=== PATIENT | male | born 1970 | race African-American/Black ===

== ENCOUNTER 2017-05-24 09:03 | Outpatient (RCR) | payer MEDICAID, SELFPAY | END 2017-05-24 23:59 | LOC: PT 09:03 | PROVIDERS: Visit Provider Internal Medicine | DX: M54.41 Lumbago with sciatica, right side (principal) ==

== ENCOUNTER 2017-05-28 14:00 | Outpatient (RCR) | payer MEDICAID, SELFPAY | END 2017-05-28 23:59 | LOC: PT 14:00 | PROVIDERS: PCP Internal Medicine; Visit Provider Internal Medicine | DX: M54.41 Lumbago with sciatica, right side (principal) | CPT/HCPCS: 97010; 97012; 97014; 97110; 97162; G0283 ==

== ENCOUNTER → 2017-09-20 07:55 | Outpatient (CLI) | payer MEDICAID, SELFPAY ==
--- NOTE | 2017-09-20 07:57 | CT_ITS ---
CT abdomen w con Ordering Physician: Luther Allen MD Patient Age: 46 years: Male HISTORY: ITS.REASON: Abdominal pain PERIUMBILICAL PAIN, UMB HERNIA REPAIR 11/2016 TECHNIQUE: Helical CT scanning performed through abdomen only following 75 cc Isovue-370 along with Redicat oral enteric contrast. Sagittal coronal axial reconstructions performed on CT workstation The entire pelvis was not imaged-Only the uppermost pelvis includedWith today's CT abdomen study & order. COMPARISON : Prior October 12, 2016 CT abdomen pelvis FINDINGS Lung bases clear nothing definitely acute Liver. No focal lesions. No abnormal areas of enhancement.No biliary ductal dilatation. Gallbladder. No definitive calcified stones small dot towards neck could reflect a very tiny pinpoint stone or calcified debris. Pancreas appears satisfactory. Spleen unremarkable. Adrenals unremarkable Kidneys. No urinary tract calculi nor obstruction. No retroperitoneal nor mesenteric adenopathy When compared to the previous 2016 CT study there is been a interval umbilical hernia repair. The bulging fat-containing umbilical hernia now demonstrates of minimal focal density with no significant recurrent hernia here. However there is midline bulging, superior to the umbilicus due to Midline diastases here at upper abdomen. .. Intraperitoneal Bowel loops are seen behind this fairly diffuse midline bulge above umbilicus . On close inspection, on sagittal image 44 there is slight subtle irregularity of the abdominal wall 3.5-4 cm superior to the umbilicus. I believe there may be a subtle defect in the anterior abdominal wall at this level. This yields a double density line on axial images 66-68 with suggestion of a subtle fat with what may be is tiny fat-containing hernia here questioned on these images particularly sagittal slice 45.*Images were reviewed with Dr. Allen This CT study abdomen only includes uppermost pelvis. We do identify a normal-appearing appendix. Upper normal fluid at the distal ileum and terminal ileum. Moderate stool the is seen throughout the visualized colon with scattered diverticula descending colon. Upper normal wall thickness at descending colon most likely reflects lack of distention The small bowel is normal in caliber with. Oral contrast has not yet reached the distal ileum with no seen was less than 1 hour prior to imaging which likely account for such . No osseous lesions evident IMPRESSION: Interval umbilical hernia repair when compared to October 12, 2016. bulging at midline above the umbilicus again seen reflecting previous observed diastases recti. However there is also suggestion of small fat-containing subtle ventral hernia within this area of diastases recti located 3.5-4 cm superior to the umbilicus. Images were reviewed with Dr. Allen Diverticulosis at the sigmoid colon and left colon. No diverticulitis.
== END ==
PROVIDERS: Family Provider Internal Medicine; PCP Internal Medicine; Visit Provider Surgery
DX: R10.33 Periumbilical pain (principal)
CPT/HCPCS: 74160; Q9967

== ENCOUNTER → 2017-11-05 10:17 | Outpatient (CLI) | payer MEDICAID, SELFPAY ==
--- NOTE | 2017-11-05 10:24 | XR_ITS ---
XR hip RT 2-3V w/pelvis HISTORY: ITS.REASON: RT HIP PAIN ORDERING PHYSICIAN: Ok West PATIENT AGE: 46 years COMPARISON: None FINDINGS: No fracture or dislocation is evident. There are minimal osteoarthritic changes with slight decrease in the joint space and minimal osteophyte formation. Involves both hips as seen on the AP view the pelvis. No fracture or dislocation. No lytic or blastic change. IMPRESSION: Mild osteoarthritic changes of the hips
== END ==
PROVIDERS: PCP Internal Medicine; Visit Provider Internal Medicine
DX: M25.551 Pain in right hip (principal)
CPT/HCPCS: 73502

== ENCOUNTER → 2018-08-13 10:25 | Outpatient (CLI) | payer MEDICAID, SELFPAY ==
--- NOTE | 2018-08-13 10:29 | MR_ITS ---
MR shoulder RT wo con COMPARISON: None HISTORY: Right shoulder pain with limited range of motion, prior injury with weakness ORDERING PHYSICIAN: Mejia Carpio PATIENT AGE: 47 years TECHNIQUE: Routine Multiplanar multiecho sequences are performed without contrast FINDINGS: There is severe subacromial stenosis with a running humeral head. Subacromial space is 2 to 3 mm. There is complete tear of the supraspinatus and infraspinatus tendons with retraction and atrophy of the musculotendinous fibers consistent with a chronic tear. Tendinopathy/tendinosis is present involving the subscapularis tendon with forward deviation of the distal aspect of the subscapularis secondary to the high right humeral head. Teres minor tendon is small but appears intact. This muscle and tendon is also distorted due to the high right humeral head. There is mild subcortical edema involving the humeral head is some minimal irregularity of the cortex of the humeral head anteriorly. The long head of the biceps tendon is displaced medially from the bicipital groove There is increase linear T2 signal involving the inferior aspect of the anterior glenoid labrum consistent with a Bankart lesion and tear of the anterior inferior glenoid labrum. Posterior labrum has an unremarkable appearance. There is thinning the superior aspect of the anterior labrum. IMPRESSION: 1. 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 There is severe subacromial stenosis with high writing humeral head. There is tendinopathy/tendinosis of the subscapularis tendon. 2. Medial dislocation of long head of the biceps tendon. 3. 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 Osteoarthritic changes of the glenohumeral joint and degenerative changes of the humeral head
== END ==
PROVIDERS: PCP Internal Medicine; Visit Provider Orthopaedic Surgery Orthopaedic Trauma
DX: M12.819 Other specific arthropathies, not elsewhere classified, unspecified shoulder (principal)
CPT/HCPCS: 73221

== ENCOUNTER → 2018-10-06 13:33 | Outpatient (CLI) | payer MEDICAID, SELFPAY ==
--- NOTE | 2018-10-06 13:35 | MR_ITS ---
MR head/brain wo con HISTORY: Severe headaches with memory loss and dizziness and blurred vision ITS.REASON: HEADACHES ORDERING PHYSICIAN: Ok West PATIENT AGE: 47 years Comparison: None TECHNIQUE: Standard multiplanar multiecho sequences are performed without contrast. FINDINGS: No midline shift, mass effect, intracranial hemorrhage, or hydrocephalus is evident. No evidence of acute infarction. The cerebellopontine angles, cerebellum, and brainstem are unremarkable. There are numerous small subcortical and periventricular T2 white matter hyperintensities in the frontal and parietal lobes on both sides. These do not show restricted diffusion and are mainly subcortical. The pituitary, optic chiasm, corpus callosum, and craniocervical junction has an unremarkable appearance. No mastoid effusion or sinus air-fluid level. IMPRESSION: 1. Scattered small punctate periventricular and subcortical T2 white matter hyperintensities. These are nonspecific and may be seen with migraine headache or ischemic gliotic microvascular changes. Demyelinating process felt to be less likely but not totally excluded. 2. Otherwise negative MRI of the brain without contrast
== END ==
PROVIDERS: PCP Internal Medicine; Visit Provider Internal Medicine
DX: R51 Headache (principal)
CPT/HCPCS: 70551

== ENCOUNTER → 2018-12-16 14:11 | Outpatient (CLI) | payer MEDICAID, SELFPAY ==
--- NOTE | 2018-12-16 14:22 | XR_ITS ---
XR chest 2V HISTORY: ITS.REASON: LT CHEST PAIN,HYPERTENSION ORDERING PHYSICIAN: Ok West PATIENT AGE: 47 years COMPARISON: 02/09/2018. FINDINGS: Cardiac silhouette, hilar areas and pulmonary vessels are normal. There are healed upper lateral left rib fractures and compression plate with fixation screws involving the anterior left fourth and fifth ribs. There is stranding of increased density in the left upper lobe. The remainder of the lung encarnacion are clear without pleural effusion or pneumothorax. There is also some deformity of the medial ends of the left clavicle likely from an old injury. Impression: Chronic appearing left-sided rib injuries. No acute process.
== END ==
PROVIDERS: PCP Internal Medicine; Visit Provider Internal Medicine
DX: R07.9 Chest pain, unspecified (principal); I10 Essential (primary) hypertension
CPT/HCPCS: 71046; 93005

== ENCOUNTER → 2018-12-30 13:43 | Outpatient (CLI) | payer MEDICAID, SELFPAY ==
--- NOTE | 2018-12-30 13:53 | CA_ITS ---
PROCEDURE: 2-D M-mode and color Doppler study INDICATIONS FOR THE TEST: Chest pain + COPD Heart Murmur Tobacco Smoking Palpitations Fatigue Syncope Edema Hypertension+Diabetes Mellitus Rheumatic Fever SOB+GEE Obesity Hyperlipidemia Family History HD Additional History PATIENT INFORMATION HEIGHT: 72 WEIGHT:197 GENDER: Male B/P:192/92 2-D/M-MODE INTERPRETATION: 2-D MEASUREMENTS OBSERVED VALUES IN CMS Right Ventricular Dimension (RVDd) 2.4 Interventricular Septum (Thickness)(IVsd) 1.0 Left Ventricular Internal Dimensions(LVIDd) 4.9 Left Ventricular Posterior Wall (Thickness)(LVPWd) 0.6 Aortic Root 2.3 Aortic Cusp Separation 1.9 Left Atrial Dimensions (LAD) 4.1 2D 1. Left atrium is mildly enlarged, left ventricle is normal size, there is no concentric left ventricular hypertrophy, visually estimated ejection fraction 50% with no obvious regional wall motion abnormality. 2. The right atrium and right ventricle are mildly enlarged with normal contractility. 3. The aortic valve is minimally thickened and fibrosed. 4. The mitral and tricuspid valve leaflets are minimally thickened. 5. The pulmonic valve is poorly visualized. 6. No significant pericardial effusion noted. DOPPLER INTERROGATION: Doppler interrogation of the aortic, mitral and tricuspid valvular presence of mild mitral and tricuspid regurgitation, tricuspid regurgitation jet velocity is inadequate for calculation of the right ventricular systolic pressure, diastolic parameters are inconclusive. Inferior vena cava is not well visualized. CONCLUSION: 1. Mild biatrial enlargement, normal left ventricular size, visually estimated ejection fraction 50% with no regional wall motion abnormality. Diastolic parameters are inconclusive. 2. Mildly enlarged right ventricle with normal contractility. 3. Mild mitral and tricuspid regurgitation 4. No significant pericardial effusion noted.
== END ==
PROVIDERS: PCP Internal Medicine; Visit Provider Internal Medicine
DX: R07.9 Chest pain, unspecified (principal); R06.02 Shortness of breath
CPT/HCPCS: 93306

== ENCOUNTER 2019-01-16 15:00 | Outpatient (RCR) | payer MEDICAID, SELFPAY | END 2019-01-16 15:05 | disposition home or self-care (01) | LOC: PT 15:00 | PROVIDERS: Visit Provider Orthopaedic Surgery Orthopaedic Trauma | DX: M12.811 Other specific arthropathies, not elsewhere classified, right shoulder (principal) | CPT/HCPCS: 97010; 97014; 97016; 97110; 97140; 97163; 97164; G0283 ==

== ENCOUNTER → 2019-02-19 11:04 | Outpatient (POV) | payer MEDICAID, SELFPAY ==
[2019-02-19 11:15] VITALS: BP 180/72; PULSE 75; BMI 26.6
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
== END ==
PROVIDERS: PCP Internal Medicine; Visit Provider Clinical Nurse Specialist Family Health
DX: M54.5 Low back pain (principal); M25.551 Pain in right hip; M79.604 Pain in right leg; M25.571 Pain in right ankle and joints of right foot
CPT/HCPCS: 99202

== ENCOUNTER → 2019-03-02 14:19 | Outpatient (CLI) | payer OTHER, SELFPAY ==
--- NOTE | 2019-03-02 14:43 | ECG_ITS ---
APPROVED REPORT Exam: Resting ECG HR:60 bpm ECG Measurements Heart Rate 60 AXES UT 148 P 47 QRSd 76 QRS -12 QT 384 T -26 QTc 384 <Conclusion> Normal sinus rhythm Nonspecific ST-T wave abnormalities Abnormal ECG Electronically signed by : Ok West, 03/02/2019 15:31:27
[2019-03-02 14:53] LABS: Troponin I < 0.02 ng/ml (0.00-0.06)
== END ==
PROVIDERS: PCP Internal Medicine; Visit Provider Internal Medicine
DX: R07.89 Other chest pain (principal)
CPT/HCPCS: 36415; 84484; 93005

== ENCOUNTER → 2019-04-09 11:54 | Outpatient (CLI) | payer OTHER, SELFPAY ==
--- NOTE | 2019-04-09 | CA_ITS ---
APPROVED REPORT Exam: Pharmacologic Technologist: mia diaz, Ht: 6 ft 0 in Wt: 196 lbs BSA: 2.11 m2 HR: 79 bpm BP: 144/98 mmHg Indications: CP Medical History Medications: Amlodipine,,,,, Lisinopril,,,,, Asa,,,,, Gabapentin,,,,, HCTZ,,,,, BisOPROLOL,,,,, Allergies: No known drug allergies Cardiac Risk Factors: HTN Stress Test Details Test: LEXISCAN HR Resting HR: 78 bpm Max Heart Rate (APMHR): 173 bpm Max HR Achieved: 120 bpm Target HR (85% APMHR): 147 bpm % of APMHR: 69 Recovery HR: 101 bpm BP Resting BP: 144/98 mmHg Max BP: 144/98 mmHg Recovery BP: 137.0/89.0 mmHg ECG Resting ECG: NSR, NSSTTW Abnormalities Clinical Reason for Termination: Completed Protocol Exercise duration: 04:02 min Highest Stage Achieved: Stress ECG Conclusion Patient had no symptoms, with isolated PVC- PAC. There was < 1.5mm ST Segment Changes. Non-Diagnostic. Test Summary REST 06:09 . . 78 . 144/ 98 . . Stage 1 01:00 . . 109 . . . . Stage 2 01:00 . . 115 . 115/ 74 . . Stage 3 01:00 . . 103 . 137/ 94 . . Stage 4 01:00 . . 105 . 136/ 86 . . Stage 4 01:02 . . 105 . 136/ 86 . Stop exercise at 04:02 RECOVERY 01:00 . . 102 . 137/ 89 . . RECOVERY 02:00 . . 90 . 137/ 89 . . RECOVERY 03:00 . . 93 . 136/ 90 . . RECOVERY 03:40 . . 95 . 140/ 91 . . Electronically signed by : Vito Ojeda, 04/09/2019 15:17:00
--- NOTE | 2019-04-09 11:58 | NM_ITS ---
APPROVED REPORT Exam: Nuclear Stress Test Indication: HTN, TOB USE, C.P., SOB, FATIQUE Patient Location: Outpatient Stress Tech: Mendy MccoyElizabeth AR Tech:BRIDGET Cabral RT(R)(N) Ht: 6 ft 0 in Wt: 196 lbs HR: 79 bpm BP: 144/98 mmHg BSA: 2.11 m2 History: HTN, TOB USE, C.P., SOB, FATIQUE Procedure: Patient received a 0.4 mg of intravenous Lexiscan, resting heart rate 79 bpm, resting blood pressure 144/98 mmHg, with Lexiscan maximum heart rate achived was 115 bpm which is Less than 85 % of the maximum predicted heart rate and blood pressure was 115/74 mmHg. With Lexiscan, patient denied any complaint of chest pain. Electrocardiogram Resting electrocardiogram shows sinus rhythm nonspecific ST-T changes, with Lexiscan there is less than 1.[address] segment depression from the baseline EKG. The EKG portion of the Lexiscan Myoview is nondiagnostic. Cardiac Stress and Resting SPECT Images: Cardiac Stress and Resting SPECT images were obtained using technetium 99m Myoview 32.0 mCi stress and 10.42 mCi at rest. Gated SPECT with analysis of segmental wall motion and calculation of the ejection fraction also done. Cardiac stress and resting SPECT images show decreased tracer activity in the anterolateral wall which improves on the resting images suggestive of reversible ischemia, computer derived ejection fraction is 53% with no regional wall motion abnormality, right ventricle is normal size and contractility. Conclusion: 1. The EKG portion of the Lexiscan Myoview is nondiagnostic. 2. Scintigraphic evidence of mild reversible ischemia involving the anterolateral wall, computer derived ejection fraction is 53% with no regional wall motion abnormality, right ventricle is normal size and contractility. 3. Abnormal Lexiscan Myoview study. Electronically signed by : Vito Ojeda, 04/09/2019 15:20:01
--- NOTE | 2019-04-09 14:17 | HMH.ITSHM ---
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 []
== END ==
PROVIDERS: PCP Internal Medicine; Visit Provider Nurse Practitioner Family
DX: R07.9 Chest pain, unspecified (principal); R06.00 Dyspnea, unspecified; R00.1 Bradycardia, unspecified; R94.31 Abnormal electrocardiogram [ECG] [EKG]; I10 Essential (primary) hypertension
CPT/HCPCS: 78452; 93017; A9502; J2785

== ENCOUNTER 2019-09-10 13:00 | Outpatient (RCR) | payer OTHER, SELFPAY | END 2019-09-10 13:05 | disposition home or self-care (01) | LOC: PT 13:00 | DX: M75.01 Adhesive capsulitis of right shoulder (principal) | CPT/HCPCS: 20560; 97014; 97016; 97110; 97140; 97163; 97164; G0283 ==

== ENCOUNTER → 2019-11-23 10:48 | Outpatient (POV) | payer OTHER, SELFPAY ==
[2019-11-23 11:05] VITALS: BP 134/95; PULSE 69; RESP 18; O2SAT 98; BMI 26.6
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
== END ==
PROVIDERS: PCP Internal Medicine; Visit Provider Clinical Nurse Specialist Family Health
DX: M25.511 Pain in right shoulder (principal)
CPT/HCPCS: 99212

== ENCOUNTER → 2019-12-23 15:17 | Outpatient (CLI) | payer OTHER, SELFPAY ==
--- NOTE | 2019-12-23 15:33 | XR_ITS ---
PROCEDURE: XR CERVICAL SPINE 4V CLINICAL INDICATION: NECK PAIN, HYPERTENSION COMPARISON: No exams were available for comparison FINDINGS: The cervical vertebra are visualized from C1-C7. There is normal cervical lordosis. No acute fracture is identified. The vertebral body and disc heights are maintained. The vertebral bodies maintain normal alignment. The odontoid process is intact. Demonstrated neural foraminal narrowing at C3-C4 and possibly at C4-C5 level on the oblique views. Other findings:There is no prevertebral soft tissue swelling. IMPRESSION: 1. No acute findings. 2. Possibly there is mild neural foraminal narrowing at C3-C4 and C4-C5 levels. If there is continued clinical concern, CT or MRI exam of the spine is recommended. Dictated by: Jose Miles 12/23/2019 15:59 Electronically signed by Jose Miles in [place] 12/23/2019 15:59
[2019-12-23 15:43] LABS: Basophils % 0.3 % (0.1-2.0); Eosinophils # 0.1 K/mm3 (0.0-0.4); Eosinophils % 1.8 % (0.1-12.0); Hematocrit 47.8 % (42.0-52.0); Hemoglobin 16.4 g/dL (14.1-18.0); Lymphocytes # 2.1 K/mm3 (0.7-4.5); Mean Corpuscular HGB Conc 34.3 g/dL (31.8-35.4); Mean Corpuscular Volume 87.4 fl (80-94); Mean Platelet Volume 6.8 fl (7.4-10.4); Monocytes # 0.5 K/mm3 (0.1-1.0); Monocytes % 7.6 % (1.7-9.3); Neutrophils # 3.8 K/mm3 (1.8-7.8); Neutrophils % 58.3 % (37.0-80.0); Platelet Count 275 K/mm3 (142-424); Red Blood Count 5.46 M/mm3 (4.60-6.20); Red Cell Distribution Width 13.6 % (11.5-17.5); White Blood Count 6.5 K/mm3 (4.8-10.8)
[2019-12-25 18:01] LABS: Rapid Plasma Reagin Ab Titer Non Reactive (NonRea<1:1)
== END ==
PROVIDERS: Visit Provider Internal Medicine
DX: M54.2 Cervicalgia (principal); R20.0 Anesthesia of skin; R20.2 Paresthesia of skin; I10 Essential (primary) hypertension; R30.0 Dysuria
CPT/HCPCS: 36415; 72050; 85025; 86592

== ENCOUNTER → 2020-09-28 11:23 | Outpatient (CLI) | payer OTHER, SELFPAY ==
--- NOTE | 2020-09-28 11:27 | XR_ITS ---
PROCEDURE: XR HIP RT 2-3V W/PELVIS CLINICAL INDICATION: RT HIP PAIN Prior surgery COMPARISON: CR PEL1V XR pelvis 1-2V from 02/09/2018 FINDINGS: Extensive postsurgical changes. Transverse screw is present in the right aspect of the iliosacral junction extending medially to the mid sacral region. Oblique screws are present extending from the super acetabular region to the pubic symphysis on both sides. Transverse screws present directed from the right-sided symphysis pubis into the left symphysis pubis. Callus formation is present at the symphysis pubis and along the pubic rami on both sides. Heterotopic ossification noted along the superior aspect of the greater trochanter on the right with an intramedullary oliva in the right femur with a prominent callus formation at the proximal to mid shaft of the right femur. There are mild osteoarthritic changes of the right hip. Heterotopic ossification also noted at the mid shaft femur region medially. No evidence of fracture of the screws or rods. The right femur I am oliva extends to the distal femur region. IMPRESSION: Extensive postsurgical changes as described above. Mild osteoarthritis of the right hip Dictated by: Bob Michelle MD 09/28/2020 12:41 Bob Michelle MD in [place] 09/28/2020 12:41
== END ==
PROVIDERS: PCP Internal Medicine; Visit Provider Internal Medicine
DX: M25.551 Pain in right hip (principal)
CPT/HCPCS: 73502

== ENCOUNTER → 2021-02-10 16:36 | Outpatient (CLI) | payer OTHER, SELFPAY ==
[2021-02-10 17:45] LABS: Microscopic, Urine URINE MICROSCOPIC (MICROSCOPIC)
[2021-02-10 17:50] LABS: Appearance,Urine CLEAR (Clear); Bilirubin,Urine Negative (Negative); Blood, Urine Negative (Negative); Color,Urine YELLOW (Yellow); Glucose,Urine (UA) Negative (Negative); Ketones,Urine Negative (Negative); Leukocyte Esterase,Urine Negative (Negative); Nitrate,Urine Negative (Negative); Protein,Urine Negative (Negative); Specific Gravity, Urine 1.025 (1.005-1.030); Urobilinogen,Urine 0.2 EU/dl (0.2)
[2021-02-10 20:22] LABS: Bacteria,Urine Trace /lpf; RBC,Urine Occasional #/hpf (0-3); WBC,Urine Occasional #/hpf (0-3)
[2021-02-13 20:13] LABS: Neisseria gonorrhoeae, NAA Negative (Negative)
== END ==
PROVIDERS: Visit Provider Internal Medicine
DX: R30.0 Dysuria (principal)
CPT/HCPCS: 81001; 87491; 87591

== ENCOUNTER → 2021-04-26 14:16 | Outpatient (CLI) | payer OTHER, SELFPAY ==
[2021-04-28 08:38] LABS: HSV 2 IgG, Type Spec <0.91 index (0.00-0.90)
[2021-04-28 10:12] LABS: Rapid Plasma Reagin Ab Titer Non Reactive (NonRea<1:1)
[2021-04-28 11:28] LABS: HIV Screen 4th Generation wRfx Non Reactive (Non Reactive)
[2021-05-01 12:40] LABS: HSV, IgM I/II Combination <0.91 Ratio (0.00-0.90)
== END ==
PROVIDERS: Visit Provider Internal Medicine
DX: Z20.2 Contact with and (suspected) exposure to infections with a predominantly sexual mode of transmission (principal); Z11.4 Encounter for screening for human immunodeficiency virus [HIV]
CPT/HCPCS: 36415; 86592; 86695; 86696; 86703; 86790; G0432

== ENCOUNTER → 2022-02-14 16:31 | Outpatient (CLI) | payer OTHER, SELFPAY ==
[2022-02-16 23:00] LABS: Neisseria gonorrhoeae, NAA Negative (Negative)
== END ==
PROVIDERS: PCP Internal Medicine; Visit Provider Internal Medicine
DX: R30.0 Dysuria (principal)
CPT/HCPCS: 87491; 87591

== ENCOUNTER → 2022-11-15 09:05 | Outpatient (CLI) | payer OTHER, SELFPAY ==
[2022-11-15 09:14] LABS: Microscopic, Urine URINE MICROSCOPIC (MICROSCOPIC)
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
--- NOTE | 2022-11-15 09:40 | ECG_ITS ---
APPROVED REPORT Exam: Resting ECG HR:56 bpm ECG Measurements Heart Rate 56 AXES VT 162 P 64 QRSd 92 QRS 61 QT 376 T 38 QTc 368 Conclusion SINUS BRADYCARDIA NONSPECIFIC ST-T WAVE ABNORMALITIES BORDERLINE ECG Electronically signed by : Ok West MD 11/19/2022 15:29:16
[2022-11-15 09:45] LABS: Appearance,Urine CLEAR (Clear); Bilirubin,Urine Negative (Negative); Blood, Urine Negative (Negative); Color,Urine YELLOW (Yellow); Glucose,Urine (UA) Negative (Negative); Ketones,Urine TRACE (Negative); Leukocyte Esterase,Urine Negative (Negative); Nitrate,Urine Negative (Negative); Protein,Urine TRACE (Negative)
[2022-11-15 09:47] LABS: Basophils % 0.5 % (0.1-2.0); Eosinophils # 0.1 K/mm3 (0.0-0.4); Eosinophils % 1.5 % (0.1-12.0); Hematocrit 47.9 % (42.0-52.0); Hemoglobin 15.5 g/dL (14.1-18.0); Lymphocytes # 1.8 K/mm3 (0.7-4.5); Lymphocytes % 40.3 % (10-50); Mean Corpuscular HGB Conc 32.4 g/dL (31.8-35.4); Mean Corpuscular Volume 86.4 fl (80-94); Mean Platelet Volume 7.1 fl (7.4-10.4); Monocytes # 0.5 K/mm3 (0.1-1.0); Monocytes % 11.5 % (1.7-9.3); Neutrophils # 2.1 K/mm3 (1.8-7.8); Neutrophils % 46.1 % (37.0-80.0); Platelet Count 279 K/mm3 (142-424); Red Blood Count 5.54 M/mm3 (4.60-6.20); Red Cell Distribution Width 13.7 % (11.5-17.5); White Blood Count 4.5 K/mm3 (4.8-10.8)
[2022-11-15 09:56] LABS: Squamous Epithelial Cell,Urine Occasional #/hpf (0-5)
[2022-11-15 10:27] LABS: Alanine Aminotransferase 18 U/L (12-78); Albumin Level 4.2 g/dl (3.5-5.0); Albumin/Globulin Ratio 1.6 (1.1-1.8); Alkaline Phosphatase 79 U/L (38-126); Anion Gap 11.3 mEq/L (5-15); Aspartate Amino Transferase 37 U/L (17-59); Bilirubin,Total 0.6 mg/dl (0.2-1.3); Blood Urea Nitrogen 9 mg/dl (9-20); Calcium 9.2 mg/dl (8.4-10.2); Carbon Dioxide 32 mmol/L (22.0-30.0); Chloride 100 mmol/L (98-107); Chol/HDL Ratio 3.9 (1-3.5); Cholesterol 240 mg/dl (140-200); Estimated Glomerular Filt Rate 79 ml/min (>60); GFR (African American) 96 ML/MIN (>60); Globulin 2.6 g/dL (1.3-3.2); Glucose 100 mg/dl (74-100); HDL Cholesterol 62 mg/dl (40-60); Potassium 4.3 mmoL/L (3.5-5.1); Sodium 139 mmol/L (136-145); Total Protein,Serum 6.8 g/dl (6.3-8.2); Triglycerides 122 mg/dl (30-150); VLDL Cholesterol 24 mg/dL (0-40)
[2022-11-15 10:38] LABS: Direct LDL Cholesterol 107.15 mg/dL (100-129)
[2022-11-15 10:57] LABS: Prostate Specific Ag Screen 2.5 ng/ml (0.0-4.0)
== END ==
PROVIDERS: PCP Internal Medicine; Visit Provider Internal Medicine
DX: R07.9 Chest pain, unspecified (principal); I10 Essential (primary) hypertension; E78.5 Hyperlipidemia, unspecified; M54.41 Lumbago with sciatica, right side; Z12.5 Encounter for screening for malignant neoplasm of prostate
CPT/HCPCS: 36415; 71046; 80053; 80061; 81001; 85025; 93005; G0103

== ENCOUNTER → 2022-12-24 16:36 | Outpatient (CLI) | payer OTHER, SELFPAY ==
[2022-12-26 22:18] LABS: Neisseria gonorrhoeae, NAA Negative (Negative)
== END ==
PROVIDERS: PCP Internal Medicine; Visit Provider Internal Medicine
DX: R30.0 Dysuria (principal)
CPT/HCPCS: 87491; 87591

== ENCOUNTER → 2023-05-14 17:28 | Outpatient (CLI) | payer OTHER, SELFPAY ==
[2023-05-16 23:19] LABS: Neisseria gonorrhoeae, NAA Negative (Negative)
== END ==
PROVIDERS: PCP Internal Medicine; Visit Provider Internal Medicine
DX: R30.0 Dysuria (principal)
CPT/HCPCS: 87491; 87591

== ENCOUNTER 2023-05-29 10:04 | Outpatient (CLI) | payer OTHER, SELFPAY ==
[2023-05-29 10:29] LABS: Basophils % 0.9 % (0.1-2.0); Eosinophils # 0.1 K/mm3 (0.0-0.4); Eosinophils % 1.3 % (0.1-12.0); Hematocrit 52.4 % (42.0-52.0); Hemoglobin 16.6 g/dL (14.1-18.0); Lymphocytes # 1.6 K/mm3 (0.7-4.5); Lymphocytes % 41.1 % (10-50); Mean Corpuscular HGB Conc 31.8 g/dL (31.8-35.4); Mean Corpuscular Volume 91.3 fl (80-94); Mean Platelet Volume 7.1 fl (7.4-10.4); Monocytes # 0.4 K/mm3 (0.1-1.0); Monocytes % 9.2 % (1.7-9.3); Neutrophils # 1.9 K/mm3 (1.8-7.8); Neutrophils % 47.4 % (37.0-80.0); Platelet Count 323 K/mm3 (142-424); Red Blood Count 5.74 M/mm3 (4.60-6.20); Red Cell Distribution Width 13.4 % (11.5-17.5)
[2023-05-29 16:24] LABS: Alanine Aminotransferase 21 U/L (12-78); Albumin Level 4.3 g/dl (3.5-5.0); Alkaline Phosphatase 75 U/L (38-126); Anion Gap 9.4 mEq/L (5-15); Aspartate Amino Transferase 39 U/L (17-59); Bilirubin,Direct 0.1 mg/dl (0.0-0.4); Bilirubin,Indirect 0.3 mg/dL (0.0-0.9); Bilirubin,Total 0.4 mg/dl (0.2-1.3); Bilirubin,Unconjugated 0.4 mg/dL (0.0-1.1); Blood Urea Nitrogen 14 mg/dl (9-20); Calcium 9.2 mg/dl (8.4-10.2); Carbon Dioxide 30 mmol/L (22.0-30.0); Chloride 102 mmol/L (98-107); Cholesterol 248 mg/dl (140-200); Estimated Glomerular Filt Rate 71 ml/min (>60); GFR (African American) 85 ML/MIN (>60); Glucose 109 mg/dl (74-100); HDL Cholesterol 50 mg/dl (40-60); Potassium 4.4 mmoL/L (3.5-5.1); Sodium 137 mmol/L (136-145); Triglycerides 119 mg/dl (30-150); VLDL Cholesterol 24 mg/dL (0-40)
[2023-05-29 16:35] LABS: Direct LDL Cholesterol 131.42 mg/dL (100-129)
[2023-05-29 16:40] LABS: Free T4 (Free Thyroxine) 0.73 ng/dl (0.78-2.19)
[2023-05-29 16:54] LABS: Thyroid Stimulating Hormone 1.09 uIU/mL (0.465-4.68)
== END 2023-05-29 23:59 ==
PROVIDERS: PCP Internal Medicine; Visit Provider Nurse Practitioner Family
DX: R07.9 Chest pain, unspecified (principal); R94.31 Abnormal electrocardiogram [ECG] [EKG]
CPT/HCPCS: 36415; 80048; 80061; 80076; 83735; 84439; 84443; 85025

== ENCOUNTER 2023-06-18 08:02 | Outpatient (CLI) | payer OTHER, SELFPAY ==
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
[2023-06-18 08:41] VITALS: BMI 57.6
[2023-06-18 08:46] VITALS: BP 153/94; PULSE 55; RESP 16; TEMP 36.6; O2SAT 99
--- NOTE | 2023-06-18 08:50 | CT_ITS ---
APPROVED REPORT Circuit Design Engineer: CLINICAL INDICATION Chest Pain TECHNIQUE Image Acquisition: A 128 slice MDCT scanner (Onyx Groupa View) was used for data acquisition. A noncontrast coronary calcium scan was performed. A CT attenuation threshold of 130 Hounsfield units (HU) was used for the detection of calcium in contiguous voxels of 1 sq mm in area to be counted as individual lesions. Bolus tracking in the ascending aorta with a threshold of 180 HU was performed. Immediately afterwards, ECG synchronized cardiac CT was then performed from the cardiac base to apex using retrospective gating with ECG tube current modulation. A total of 85 mL of Isovue 370 mg/mL contrast medium was administered at 5 mL/sec followed by a saline flush using a biphasic injection protocol. A tube voltage of 120 KVp was used. The patient received the following medications prior to the cardiac CT. 0.8 mg of sublingual nitroglycerin The average heart rate at the time of acquisition was 54 bpm and regular. Image Reconstruction Transaxial images were reconstructed at 0.67 mm slide thickness. Data was reviewed interactively on an advanced workstation capable of 2 and 3-dimensional displays in all conventional reconstruction formats, including multiplanar reformations, maximum intensity projections, curved multiplanar reformations, and volume rendered reconstructions. When applicable, selected routine images describing the relevant coronary anatomy and pathology were saved and sent to PACS. Complications None Technical Quality Overall image quality was good. Coronary artery opacification was adequate. Total DLP (Dose-Length Product) is 1126.8 mGy-cm. The reported value represents the total of one or more individual components during the CT acquisition of this date and at this time, and as such, the same value may appear in more than one CT report depending on the interpreting/reporting physicians. COMPARISON None FINDINGS CT Coronary Calcium Scoring LMA (Left Main Artery) = 0 LAD (Left Anterior Descending) = 0 LCX (Left Coronary Circumflex) = 0 RCA (Right Coronary Artery) = 110 Total Calcium Score = 110 using the AJ-130 method. The observed calcium score of 110 is at 88th percentile for subjects of the same age, sex, and race/ethnicity. The interpretation of the calcium heart score is based on the following continuum*: 0 = no calcified plaque detected (risk of coronary artery disease is very low ??? less than 5%) 1-10 = calcium detected in extremely minimal levels (risk of coronary diseases is still low ??? less than 10%) 11-100 = mild levels of plaque detected with certainty (mild or minimal narrowing of heart arteries is likely) 101-400 = definite,at least moderate levels of plaque detected (relatively high risk of a heart attack within 3-5 years) >401-999 = extensive levels of plaque detected (high risk of heart attack, high levels of vascular disease are present, high likelihood of at least one significant coronary narrowing) *The calcium heart score quantifies the burden of coronary calcification/plaque in the coronary arteries. The calcium heart score is not able to evaluate the presence or burden of non-calcified (i.e. soft) plaque. There is no identifiable calcification in the aortic valve, mitral annulus or mitral valve, pericardium, or myocardium. Coronary CT Angiography The coronary arterial system is right dominant. Quantitative Stenosis Grading: Left Main (LM): The left main originates normally from the left sinus of Valsalva. The LM trifurcates into the left anterior descending artery and left circumflex artery. The LM is patent with no evidence of atherosclerosis. Left Anterior Descending (LAD) and Diagonal Branches: The LAD gives off 2 diagonal branches. The LAD and its branches are patent with no evidence of atherosclerosis. There is no evidence of LAD bridge. Ramus-intermedius (RI): The RI is patent. Left Circumflex (LCX) and Obtuse Marginals (OM): The LCX gives off 2 Obtuse Marginal (OM) branches. The LCX and its branches are patent with no evidence of atherosclerosis. Right Coronary Artery (RCA): The RCA originates normally from the right sinus of Valsalva. The RCA gives off a posterior descending artery (PDA) and posterolateral (PL) branches. There is a calcified plaque in the proximal RCA but not resulting in luminal stenosis. There is also another mixed-plaque in the mid-RCA with mild 30-50% luminal stenosis. Non-Coronary Cardiac Findings: Analysis of the left ventricular (LV) structure and function was performed after 3-D reconstruction of the LV from axial images, with user-corrected automatic contouring for assessment of LV volumes and user-defined reconstruction from oblique planes for measurement of 3-D cardiac structure and function. LVEDV: 197 mL LVESV: 79 mL SV: 118 mL LVEF: 60% -The left ventricle is normal in size with normal left ventricular systolic function. -There is no left atrial appendage filling defect. Two right pulmonary veins and two left pulmonary veins drain normally into the left atrium. -No pericardial thickening or calcification. -Central and branch pulmonary arteries in the [id number] are unremarkable. -Thoracic aorta within the visualized thoracic aortic-branches in the [id number] is unremarkable. Extracardiac Structures -Hiatal hernia is present. IMPRESSION -Presence coronary calcification with an Agatston score = 110 using the AJ-130 method. -The observed calcium score of 110 is at 88th percentile for subjects of the same age, sex, and race/ethnicity. -Mixed calcified/non-calcified plaque in the mid-RCA, with approximately 30-50% non-obstructive luminal stenosis. -CAD-RADS 2. Management recommendations per ACC/AHA guidelines*, as clinically appropriate. -Hiatal hernia is incidentally noted. *Recommendations: CAD RADS 0: Reassurance. Consider non-atherosclerotic causes of chest pain. CAD RADS 1: Consider non-atherosclerotic causes of chest pain. Consider preventive therapy and risk factor modification. CAD RADS 2: Consider non-atherosclerotic causes of chest pain. Consider preventive therapy and risk factor modification, particularly for patients with nonobstructive plaque in multiple segments. CAD RADS 3: Consider further functional testing. Consider symptom-guided anti-ischemic and preventive pharmacotherapy as well as risk factor modification per published guideline statements. CAD RADS 4A: Consider further functional testing or invasive coronary angiography with revascularization per published guideline statements. Consider symptom-guided anti-ischemic and preventive pharmacotherapy as well as risk factor modification per published guideline statements. CAD RADS 4B: Invasive coronary angiography recommended with revascularization per published guideline statements. Consider symptom-guided anti-ischemic and preventive pharmacotherapy as well as risk factor modification per published guideline statements. CAD RADS 5: Consider invasive angiography and/or viability assessment with revascularization per published guideline statements. Consider symptom-guided anti-ischemic and preventive pharmacotherapy as well as risk factor modification per published guideline statements. CRITICAL RESULT None COMMUNICATION Per this written report The coronary and cardiac findings of this CCTA were reviewed, reported, and signed by Anil Perez MD (Human Anatomy Teacher) Conclusion Electronically signed by : Estephanie Perez MD 06/20/2023 17:09:49
[2023-06-18 08:57] VITALS: BP 167/101; PULSE 54; RESP 16; O2SAT 99
[2023-06-18 09:02] VITALS: BP 137/88; PULSE 62; RESP 16; O2SAT 98
[2023-06-18 09:12] VITALS: BP 153/73; PULSE 57; RESP 16; TEMP 36.9; O2SAT 98
[2023-06-18] MEDS: IOPAMIDOL-370 (76%);100ML BOTTLE 85 ML IV (09:18)
[2023-06-18] MEDS: 0.9 % SODIUM CHLORIDE 50 ML VIAL IV (09:18)
== END 2023-06-18 09:20 | disposition home or self-care (01) ==
PROVIDERS: PCP Internal Medicine; Visit Provider Internal Medicine
DX: R07.9 Chest pain, unspecified (principal); R94.31 Abnormal electrocardiogram [ECG] [EKG]
CPT/HCPCS: 75571; 75574; 93306; Q9967

== ENCOUNTER 2023-07-03 11:02 | Outpatient (CLI) | payer OTHER, SELFPAY ==
--- NOTE | 2023-07-03 | CA_ITS ---
APPROVED REPORT Exam: Pharmacologic Technologist: Mallory Hernandez Ht: 0 ft 6 in Wt: 191 lbs BSA: 0.34 m2 HR: 45 bpm BP: 130/76 mmHg Rhythm: NSR Indications: CP Medical History Medications: Amlodipine,,,,, Lisinopril,,,,, Omeprazole,,,,, Aspirin,,,,, Gabapentin,,,,, Atorvastatin,,,,, BisOPROLOL,,,,, Diclofenac Sodium,,,,, Stress Test Details Test: LEXISCAN HR Resting HR: 47 bpm Max Heart Rate (APMHR): 169 bpm Max HR Achieved: 87 bpm Target HR (85% APMHR): 144 bpm % of APMHR: 51 Recovery HR: 59 bpm BP Resting BP: 130/76 mmHg Max BP: 132/65 mmHg Recovery BP: 132.0/65.0 mmHg ECG Resting ECG: Sinus bradycardia, nonspecific T wave changes Stress ECG: No significant ST changes Arrhythmia: None Clinical Exercise duration: 04:01 min Highest Stage Achieved: Exercise capacity: 1.0 METs Stress ECG Conclusion Symptoms: mild shortness of air. No chest pain Arrhythmias/Ectopy: None ST-T Changes: No significant ST changes. Conclusion: Unremarkable Lexiscan stress. Myoview images reported separately. Test Summary REST 02:49 . . 47 . 130/ 76 . . Stage 1 01:00 . . 64 . . . . Stage 2 01:00 . . 84 . 127/ 76 . . Stage 3 01:00 . . 73 . 116/ 80 . . Stage 4 01:00 . . 66 . 118/ 76 . . Stage 4 01:01 . . 66 . 118/ 76 . Stop exercise at 04:01 RECOVERY 01:00 . . 63 . 130/ 71 . . RECOVERY 02:00 . . 60 . 130/ 71 . . RECOVERY 03:00 . . 59 . 132/ 65 . . RECOVERY 03:17 . . 57 . 132/ 65 . . Electronically signed by : Estephanie Perez MD 07/06/2023 23:44:16
--- NOTE | 2023-07-03 11:02 | NM_ITS ---
APPROVED REPORT Exam: Nuclear Stress Test Indication: Chest pain, HTN, High cholesterol, Tobacco use, Family history Patient Location: Outpatient Stress Tech: Letty Pascual MS Tech:Kait Georges, ARRT, RT (R)(N) Ht: 6 ft 0 in Wt: 191 lbs HR: 47 bpm BP: 130/76 mmHg BSA: 2.09 m2 TID: 1.13 History: Chest pain, HTN, High cholesterol, Tobacco use, Family history Procedure: Patient received 0.4 mg of intravenous Lexiscan, resting heart rate 47 bpm, resting blood pressure 130/76 mmHg, with AdenosineLexiscan maximum heart rate achieved was 87 bpm which is % of the maximum predicted heart rate and blood pressure was 132/65 mmHg. With Lexiscan, patient denied any complaint of chest pain. Cardiac Stress and Resting SPECT Images: Cardiac Stress and Resting SPECT images were obtained using technetium 99m Myoview 32.2 mCi stress and 10.60 mCi at rest. Resting and stress imaging in supine and prone positions demonstrate a large sized, moderate, partially reversible perfusion defect in the inferior and inferoapical LV reeves. Gated imaging demonstrates mild reduction in global LV systolic function. There is moderate hypokinesis in the inferior LV wall. LVEF is calculated at 44%. Conclusion: Large sized, moderate, partially reversible perfusion defect in the inferior and inferoapical LV reeves. Findings are suggestive of partial reversible ischemia. Gated imaging demonstrates mild reduction in global LV systolic function. There is moderate hypokinesis in the inferior LV wall. LVEF is calculated at 44%. Electronically signed by : Estephanie Perez MD 07/06/2023 23:46:16
[2023-07-03] MEDS: ISOTOPE MYOVIEW (PER STUDY) 1 DOSE IV (12:44)
[2023-07-03] MEDS: SODIUM CHLORIDE 0.9% 10ML SYR (RAD ONLY) 10 ML IV ×2 (12:44)
[2023-07-03] MEDS: REGADENOSON 0.4MG/5ML SYRINGE 0.400000000000000022 MG IV (12:44)
== END 2023-07-03 23:59 ==
LOC: RAD 11:02
PROVIDERS: PCP Internal Medicine; Visit Provider Nurse Practitioner Family
DX: R06.00 Dyspnea, unspecified (principal); R07.9 Chest pain, unspecified; R93.1 Abnormal findings on diagnostic imaging of heart and coronary circulation; R94.31 Abnormal electrocardiogram [ECG] [EKG]; I10 Essential (primary) hypertension; E78.5 Hyperlipidemia, unspecified; F17.200 Nicotine dependence, unspecified, uncomplicated
CPT/HCPCS: 78452; 93017; 93018; A9502; J2785

== ENCOUNTER 2023-07-24 08:58 | Day surgery (SDC) | payer OTHER, SELFPAY ==
[2023-07-24] VITALS (11 sets, daily range): BP systolic 98–152; BP diastolic 49–83; PULSE 44–57; RESP 18–19; TEMP 36.4; O2SAT 96–100; BMI 26.8
--- NOTE | 2023-07-24 07:22 | IR_ITS ---
APPROVED REPORT Patient Location: Outpatient PROCEDURES Left heart catheterization Left ventriculogram Selective coronary angiogram INDICATION Abnormal Myoview, Angina pectoris Informed consent was obtained prior to the procedure. COMPLICATIONS NONE Estimated Blood Loss: LESS THAN 10 ML TECHNIQUE One percent lidocaine used to anesthetize the right anterior aspect of the wrist. The right radial artery was accessed via the Seldinger technique. A 6 Azeri sheath was placed in the right radial artery. 2.5 mg of Verapamil, 800 mcg of nitroglycerin, 1mg Lidocaine and 5000 U Heparin were given through the arterial sheath. The papa catheter was also used to perform left heart catheterization, left ventriculogram and selective coronary angiogram. At the end of the procedure the sheath was removed good hemostasis was achieved using Traclet band, patient was transferred to the postop holding area in stable condition. ANGIOGRAPHIC RESULTS The left main artery Normal The left anterior descending artery Is proximally normal and tortuous throughout the mid segment accompanied by ALIYAH II flow. There is no evidence of atherosclerotic heart disease The circumflex artery Nondominant with mild 10% luminal irregularities The right coronary artery Large dominant tortuous with intermittent 10 to 20% nonflow limiting luminal regularities The AVERY ventriculogram reveals Normal 65% The left ventricular end-diastolic pressure 10 mmHg IMPRESSION Nonflow limiting coronary artery disease as described above Tortuous vessels consistent with hypertensive heart disease Normal ejection fraction Normal LVEDP PLAN 1. Medical management Electronically signed by : Alvin Cevallos MD 07/24/2023 13:09:24
[2023-07-24 09:26] LABS: Basophils % 0.5 % (0.1-2.0); Eosinophils # 0.1 K/mm3 (0.0-0.4); Eosinophils % 2.1 % (0.1-12.0); Hemoglobin 15.4 g/dL (14.1-18.0); Lymphocytes # 1.8 K/mm3 (0.7-4.5); Lymphocytes % 44.1 % (10-50); Mean Corpuscular HGB Conc 32.1 g/dL (31.8-35.4); Mean Corpuscular Volume 90.4 fl (80-94); Mean Platelet Volume 7.2 fl (7.4-10.4); Monocytes # 0.4 K/mm3 (0.1-1.0); Monocytes % 10.3 % (1.7-9.3); Neutrophils # 1.7 K/mm3 (1.8-7.8); Platelet Count 266 K/mm3 (142-424); Red Blood Count 5.31 M/mm3 (4.60-6.20); Red Cell Distribution Width 13.1 % (11.5-17.5)
[2023-07-24 09:35] LABS: Anion Gap 8.9 mEq/L (5-15); Blood Urea Nitrogen 12 mg/dl (9-20); Calcium 9.1 mg/dl (8.4-10.2); Carbon Dioxide 32 mmol/L (22.0-30.0); Chloride 101 mmol/L (98-107); Creatinine Clearance Estimated 111 mL/min (50-200); Estimated Glomerular Filt Rate 79 ml/min (>60); GFR (African American) 95 ML/MIN (>60); Glucose 109 mg/dl (74-100); Potassium 3.9 mmoL/L (3.5-5.1); Sodium 138 mmol/L (136-145)
[2023-07-24] MEDS: HEPARIN 1,000 UNITS/500ML NS (CATH LAB) 3000 UNIT IV (12:28)
[2023-07-24] MEDS: diphenhydrAMINE 50MG/ML VIAL 50 MG IV (12:29)
[2023-07-24] MEDS: NITROGLYCERIN 800MCG/8ML SYR (CATH LAB) 800 MCG IA (12:29)
[2023-07-24] MEDS: LIDOCAINE 1% 10ML MDV 20 ML IJ (12:29)
[2023-07-24] MEDS: 0.9 % SODIUM CHLORIDE 500 ML 25 ML IV (12:29)
[2023-07-24] MEDS: HEPARIN 1,000 UNITS/ML 10ML VIAL (CATH LAB) 10000 UNIT IV (12:29)
[2023-07-24] MEDS: VERAPAMIL 2.5MG/ML 2ML VIAL 2.5 MG IV (12:29)
[2023-07-24] MEDS: MIDAZOLAM HCL 1MG/1ML 5ML VIAL 1 MG IV (13:01)
[2023-07-24] MEDS: FENTANYL 100MCG/2ML VIAL 50 MCG IV (13:02)
[2023-07-24] MEDS: IOPAMIDOL-370 (76%);100ML BOTTLE 50 ML IV (13:54)
== END 2023-07-24 15:43 | disposition home or self-care (01) ==
PROVIDERS: PCP Internal Medicine; Visit Provider Internal Medicine
DX: I25.118 Atherosclerotic heart disease of native coronary artery with other forms of angina pectoris (principal); F17.210 Nicotine dependence, cigarettes, uncomplicated; E78.5 Hyperlipidemia, unspecified; R93.1 Abnormal findings on diagnostic imaging of heart and coronary circulation; I10 Essential (primary) hypertension; K44.9 Diaphragmatic hernia without obstruction or gangrene; R94.31 Abnormal electrocardiogram [ECG] [EKG]; R07.9 Chest pain, unspecified
CPT/HCPCS: 80048; 85025; 93458; 99152; C1725; C1769; J1644; Q9967

== ENCOUNTER 2023-11-04 10:15 | Outpatient (CLI) | payer OTHER, SELFPAY ==
[2023-11-04 12:01] LABS: Alanine Aminotransferase 21 U/L (12-78); Albumin Level 4.4 g/dl (3.5-5.0); Alkaline Phosphatase 94 U/L (38-126); Aspartate Amino Transferase 36 U/L (17-59); Bilirubin,Indirect 0.4 mg/dL (0.0-0.9); Bilirubin,Total 0.4 mg/dl (0.2-1.3); Bilirubin,Unconjugated 0.5 mg/dL (0.0-1.1); Chol/HDL Ratio 3.2 (1-3.5); Cholesterol 163 mg/dl (140-200); HDL Cholesterol 51 mg/dl (40-60); Triglycerides 123 mg/dl (30-150); VLDL Cholesterol 25 mg/dL (0-40)
[2023-11-04 12:13] LABS: Direct LDL Cholesterol 66.22 mg/dL (100-129)
== END 2023-11-04 23:59 | disposition home or self-care (01) ==
LOC: LAB 10:15
PROVIDERS: PCP Internal Medicine; Visit Provider Nurse Practitioner
DX: E78.2 Mixed hyperlipidemia (principal)
CPT/HCPCS: 36415; 80061; 80076

== ENCOUNTER 2024-11-03 10:26 | Outpatient (CLI) | payer OTHER, SELFPAY ==
--- OUTSIDE RECORDS SUMMARY | 2024-11-03 10:29 | XMS_ITS | Clinical Summary ---
Author Organization Healthcare Address [address] [id number] Care Team Providers Care Intake Clinician Name Role Phone Ok West MD Primary Care Provider [phone] Allergies No known active allergies Medications aspirin 325 MG EC tablet 05/03/2018 Active bisoprolol (Zebeta) 5 MG tablet 04/04/2018 Active gabapentin (Neurontin) 300 MG capsule 03/13/2018 Active lisinopril 10 MG tablet 03/13/2018 Active methylPREDNISol one (Medrol Dospak) 4 MG tablets Take as directed on the package. 08/02/2020 Active traMADol (Ultram) 50 MG tablet 1 tablet every 12 (twelve) hours if needed. 11/04/2018 Active Active Problems Problem Noted Date Diagnosed Date Post-traumatic osteoarthritis of right shoulder 01/06/2021 Rotator cuff arthropathy of right shoulder 01/06 Adhesive capsulitis of right shoulder 01/06/2021 Immunizations Immunization Administration Dates Next Due Tdap 02/13/2018 Family History Medical History Relation Name Comments Conversions - Other Father Patient' s father is COPD Mother Relation Name Status Comments Father Mother Social History Tobacco Use Types Packs/Day Years Used Date Smoking Tobacco: Never Smokeless Tobacco: Never Sex and Gender Information Value Date Recorded Sex Assigned at Not on file Legal Sex Male 8:29 PM EDT Gender Identity Not on file Sexual Orientation Not on file Last Filed Vital Signs Vital Sign Reading Time Taken Comments Blood Pressure 129/85 01/06/2021 10:40 AM EDT Pulse 96 01/06/2021 10:40 AM EDT Temperature 36.4 C (97.6 F) 01/06/2021 10:40 AM EDT Respiratory Rate 20 07/23/2018 10:28 AM EST Oxygen Saturation 97% 01/06/2021 10:40 AM EDT Inhaled Oxygen Concentration - - Weight 87.1 kg (192 lb) 01/06/2021 10:40 AM EDT Height 182.9 cm (6') 01/06/2021 10:40 AM EDT Body Mass Index 26.04 01/06/2021 10:40 AM EDT Plan of Treatment Health Maintenance Due Date Last Done Comments [facility]-Depression Screening 1971 [facility]-Infant/Child/Adol SDOH Screenings 1971 [facility]- SDOH Screenings 12/24/1989 [facility]-Adult SDOH Screenings 12/24/1989 [facility]-Hepatitis B Vaccines (1 of 3 - 19+ 3-dose series) 12/24/1990 CT Colonography 12/24/2016 Colonoscopy 12/24/2016 FIT-DNA 12/24/2016 FIT 12/24/2016 FOBT 12/24/2016 Sigmoidoscopy 12/24/2016 [facility]-Colorectal Cancer Screening 12/24/2016 [facility]-Pneumococcal Vaccine: 50 + Years (1 of 1 - PCV) 12/24/2021 [facility]-Zoster Vaccines (1 of 2) 12/24/2021 [id number] Vaccine (1 - 2023- season) 2024 [facility]-Influenza Vaccine ([place]as[place] n Ended) 2025 [facility]-DTaP,Tdap,and Td Vaccine s (3 - Td or Tdap) 02/14/2028 02/13/2018, 09/15/2007 HPV Vaccines Aged Out No longer eligi ble based on patient's age to complete this topic [facility]-HIB Vaccines Aged Out No longer e ligible based on patient's age to complete this topic [facility]-Hepatitis A Vaccines Aged Out No longer eligible based on patient's age to complete this topic [facility]-IPV Vaccines Aged Out No longer e ligible based on patient's age to complete this topic [facility]-Rotavirus Vaccines Aged Out No lo nger eligible based on patient's age to complete this topic Insurance RAHUL RED [id number] [employer] MEDICA[employer] Care Teams Intake Clinician Relationship Specialty Start Date End Date Ok West MD [address] [place] [address] [address] [place] [address] PCP - General 10/07/20
[2024-11-03 11:03] LABS: Basophils % 0.3 % (0.1-2.0); Eosinophils # 0.1 Kmm3 (0.0-0.4); Eosinophils % 0.7 % (0.1-12.0); Hematocrit 50.1 % (42.0-52.0); Hemoglobin 15.6 g/dL (14.1-18.0); Immature Granulocytes # 0.02 10^3uL; Immature Granulocytes % 0.3 %; Lymphocytes # 1.6 K/mm3 (0.7-4.5); Lymphocytes % 21.6 % (10-50); Mean Corpuscular HGB Conc 31.1 g/dL (31.8-35.4); Mean Corpuscular Hemoglobin 27.1 pg (27.0-31.2); Mean Corpuscular Volume 87.1 fl (80-94); Mean Platelet Volume 9.4 fl (7.4-10.4); Monocytes # 0.7 K/mm3 (0.1-1.0); Monocytes % 9.8 % (1.7-9.3); Neutrophils # 5.1 K/mm3 (1.8-7.8); Neutrophils % 67.3 % (37.0-80.0); Nucleated Red Blood Cells # 0 10^3/uL; Nucleated Red Blood Cells % 0 %; Platelet Count 253 K/mm3 (142-424); Red Blood Count 5.75 M/mm3 (4.60-6.20); Red Cell Distribution Width 13.2 % (11.5-17.5); Red Cell Distribution Width-SD 42.3 fL; White Blood Count 7.6 K/mm3 (4.8-10.8)
[2024-11-03 11:28] LABS: Albumin Level 4.7 g/dl (3.5-5.0)
[2024-11-03 11:29] LABS: Chloride 104 mmol/L (98-107); Potassium 4.8 mmoL/L (3.5-5.1); Sodium 140 mmol/L (136-145)
[2024-11-03 11:31] LABS: Bilirubin,Unconjugated 0.6 mg/dL (0.0-1.1); Blood Urea Nitrogen 8 mg/dl (9-20); Estimated Glomerular Filt Rate 78 ml/min (>60); GFR (African American) 95 ML/MIN (>60)
[2024-11-03 11:32] LABS: Alanine Aminotransferase 26 U/L (12-78); Alkaline Phosphatase 87 U/L (38-126); Anion Gap 8.8 mEq/L (5-15); Aspartate Amino Transferase 39 U/L (17-59); Bilirubin,Direct 0.1 mg/dl (0.0-0.4); Bilirubin,Indirect 0.6 mg/dL (0.0-0.9); Bilirubin,Total 0.7 mg/dl (0.2-1.3); Calcium 9.8 mg/dl (8.4-10.2); Carbon Dioxide 32 mmol/L (22.0-30.0); Chol/HDL Ratio 2.9 (1-3.5); Cholesterol 196 mg/dl (140-200); Glucose 121 mg/dl (74-100); HDL Cholesterol 68 mg/dl (40-60); Total Protein,Serum 7.5 g/dl (6.3-8.2); Triglycerides 87 mg/dl (30-150); VLDL Cholesterol 17 mg/dL (0-40)
[2024-11-03 11:44] LABS: Direct LDL Cholesterol 72.13 mg/dL (100-129)
[2024-11-03 12:02] LABS: Thyroid Stimulating Hormone 1.34 uIU/mL (0.465-4.68)
[2024-11-03 12:20] LABS: Free T4 (Free Thyroxine) 0.67 ng/dl (0.78-2.19)
== END 2024-11-03 23:59 | disposition home or self-care (01) ==
LOC: LAB 10:27
PROVIDERS: PCP Internal Medicine; Visit Provider Nurse Practitioner
DX: I25.118 Atherosclerotic heart disease of native coronary artery with other forms of angina pectoris (principal); E78.2 Mixed hyperlipidemia; I10 Essential (primary) hypertension
CPT/HCPCS: 36415; 80048; 80061; 80076; 84439; 84443; 85025

== ENCOUNTER 2025-02-19 11:07 | Outpatient (CLI) | payer OTHER, SELFPAY ==
--- OUTSIDE RECORDS SUMMARY | 2025-02-19 11:10 | XMS_ITS | Clinical Summary ---
Author Organization Healthcare Address [address] [id number] Care Team Providers Care Bulwark Carpenter Name Role Phone Ok West MD Primary Care Provider [phone] Allergies No known active allergies Medications aspirin [...] Date Last Done Comments [facility]-Depression Screening 1971 [facility]-/Child/Adol SDOH Screenings 1971 [facility]- SDOH Screenings 12/24/1989 [facility]-Adult SDOH Screenings 12/24/1989 [facility]-Hepatitis B Vaccines (1 of 3 - 19+ 3-dose series) 12/24/1990 CT Colonography 12/24/2016 Colonoscopy 12/24/2016 FIT-DNA 12/24/2016 FIT 12/24/2016 FOBT 12/24/2016 Sigmoidoscopy 12/24/2016 [facility]-Colorectal Cancer Screening 12/24/2016 [facility]-Pneumococcal Vaccine: 50 + Years (1 of 1 - PCV) 12/24/2021 [facility]-Zoster Vaccines (1 of 2) 12/24/2021 [id number] Vaccine (1 - 2023- season) 2025 [facility]-Influenza Vaccine (#1) 2025 [facility]-DTaP,Tdap,and Td Vaccine s (3 - [...] age to complete this topic Insurance RAHUL MARR [id number] [employer] MEDICAID Care Teams Bulwark Carpenter Relationship Specialty Start Date End Date Ok West MD [address] [place] [address] [address] [place] [address] PCP - General 10/07/20
--- OUTSIDE RECORDS SUMMARY | 2025-02-19 11:10 | XMS_ITS | Patient Health Record ---
Author Organization [facility] Address [address] [facility] [address] RAHUL Barth [id number] Care Team Providers Care Picking Crew Supervisor Name Role Phone Nadege Patel Primary Care Provider Medications Medication SIG (Take, Route, Frequency, Duration) Notes Start Date End Date Status Lisinopril-hydroCHLOROth iazide 20-12.5 MG 1 tab(s) orally once a day Active Gabapentin 100 MG 1 cap orally bid 10/05/2013 Not-Taking Lisinopril-hydroCHLOROth iazide 20-12.5 MG 1 tab(s) orally once a day 10/05/2013 Active Problems Problem Type SNOMED Code ICD Code Onset Dates Problem Status W/U Status Risk Notes Problem Essential hypertension (60719927) HTN [Hypertension] (401.9) Active confirmed Problem Hyperlipidemia (41271228) Hyperlipidemia (272.4) Active confirmed Plan Of Treatment No Information Insurance Providers Payer Name Payer Address Payer Phone Subscriber Number Group Number Insured Name Patient Relationship to Insured Coverage Start Date Coverage End Date [facility] [address] [place] [address] [place] [address] [id number] Blade Thompson Self - patient is the insured Medical (General) History Medical History History ICD Code HBP Chronic back pain HLP
[2025-02-19 11:26] LABS: Hematocrit 45.0 % (42.0-52.0); Hemoglobin 14.2 g/dL (14.1-18.0); Immature Granulocytes % 0.2 %; Mean Corpuscular HGB Conc 31.6 g/dL (31.8-35.4); Mean Corpuscular Hemoglobin 28.0 pg (27.0-31.2); Mean Corpuscular Volume 88.6 fl (80-94); Nucleated Red Blood Cells % 0 %; Platelet Count 237 K/mm3 (142-424); Red Blood Count 5.08 M/mm3 (4.60-6.20); Red Cell Distribution Width-SD 44.7 fL; White Blood Count 4.2 K/mm3 (4.8-10.8)
[2025-02-19 12:51] LABS: Alanine Aminotransferase 20 U/L (12-78); Albumin Level 4.2 g/dl (3.5-5.0); Albumin/Globulin Ratio 1.8 (1.1-1.8); Alkaline Phosphatase 80 U/L (38-126); Anion Gap 11.6 mEq/L (5-15); Aspartate Amino Transferase 35 U/L (17-59); Bilirubin,Total 0.7 mg/dl (0.2-1.3); Blood Urea Nitrogen 12 mg/dl (9-20); Calcium 9.4 mg/dl (8.4-10.2); Carbon Dioxide 28 mmol/L (22.0-30.0); Chloride 105 mmol/L (98-107); Cholesterol 164 mg/dl (140-200); Creatinine,Serum 1.10 mg/dl (0.66-1.25); Estimated Glomerular Filt Rate 70 ml/min (>60); GFR (African American) 85 ML/MIN (>60); Globulin 2.3 g/dL (1.3-3.2); Glucose 96 mg/dl (74-100); HDL Cholesterol 62 mg/dl (40-60); Potassium 4.6 mmoL/L (3.5-5.1); Sodium 140 mmol/L (136-145); Total Protein,Serum 6.5 g/dl (6.3-8.2); Triglycerides 88 mg/dl (30-150)
[2025-02-19 13:07] LABS: Free T4 (Free Thyroxine) 0.81 ng/dl (0.78-2.19)
[2025-02-19 13:21] LABS: Thyroid Stimulating Hormone 0.65 uIU/mL (0.465-4.68)
== END 2025-02-19 23:59 | disposition home or self-care (01) ==
LOC: LAB 11:07
PROVIDERS: PCP Internal Medicine; Visit Provider Internal Medicine
DX: I25.10 Atherosclerotic heart disease of native coronary artery without angina pectoris (principal); I10 Essential (primary) hypertension; E78.5 Hyperlipidemia, unspecified; R79.89 Other specified abnormal findings of blood chemistry; Z12.5 Encounter for screening for malignant neoplasm of prostate
CPT/HCPCS: 36415; 80053; 80061; 84439; 84443; 85025; G0103

== ENCOUNTER 2025-05-05 10:11 | Outpatient (CLI) | payer OTHER, SELFPAY ==
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
== END 2025-05-05 23:59 ==
LOC: RAD 10:12
PROVIDERS: PCP Internal Medicine; Visit Provider Nurse Practitioner
DX: F17.200 Nicotine dependence, unspecified, uncomplicated (principal); Z96.7 Presence of other bone and tendon implants; Z87.828 Personal history of other (healed) physical injury and trauma
CPT/HCPCS: 71046